=== PATIENT | female | born 1990 | race Caucasian/White ===

== ENCOUNTER 2019-05-22 11:45 | Observation (INO) | payer OTHER, SELFPAY ==
[2019-05-22] VITALS (36 sets, daily range): BP systolic 93–106; BP diastolic 50–71; PULSE 82–132; O2SAT 94–98; BMI 34.0
--- NOTE | ~2019-05-22 | US_ITS ---
EXAMINATION: US OB limited w BPP DATE: 05/22/2019 12:51 CDT INDICATION: Increased heart rate. Decelerations. TECHNIQUE: Real-time transabdominal obstetric ultrasound. FINDINGS: Ultrasound dated 05/08/2019 There is a single living fetus in vertex presentation. The placenta is anterior without placenta pre via. cardiac activity and movement is noted with a heart rate of 161 beats per minute. A FI is normal measuring 12.6 cm. Biophysical profile: breathin of 2 movement: 2 of 2 tone: 2 of 2 Amniotic flud pocket: 2 of 2 Total score: 8 of 8 IMPRESSION: 1. Single living intrauterine in vertex presentation. 2: Total biophysical profile score of 8/8. Reviewed, dictated and finalized at location A.
--- NOTE | 2019-05-22 14:04 | PC.NURSE ---
Dulce-K.[facility] CNM called read US report and informed of quick short drops in fhr that are broken up on monitor, fhr strip reactive. pt states she is SOB intermittently and states that is normal for her. Order received to discharge home.
--- NOTE | 2019-05-22 14:55 | OBADM ---
This patient, Paulette Robles, admitted to the OB room OB Post 113 for observation. Patient/family oriented to hospital policies and general routines including ID bracelet, bed and alarms, visiting hours, pain management, procedures, bathroom and other care routines, personal items, smoking policy, room service/diet, and visiting hours. Patient/Family are encouraged to report perceived risks to care and to ask questions if they do not understand what they are told or what they should do.
--- NOTE | 2019-06-04 19:12 | PM.OBTRLD ---
OB - Triage/Final Diagnosis Final Diagnosis (1) Abnormal heart rate or rhythm (FHR): Status: Acute
== END 2019-05-22 14:25 | disposition home or self-care (01) ==
PROVIDERS: Admitting Provider Obstetrics & Gynecology; Visit Provider Obstetrics & Gynecology
DX: O36.8330 Maternal care for abnormalities of the fetal heart rate or rhythm, third trimester, not applicable or unspecified (principal); Z3A.36 36 weeks gestation of pregnancy
CPT/HCPCS: 76815; 76819; G0378; G0379

== ENCOUNTER 2019-06-02 16:25 | Outpatient (RCR) | payer OTHER, SELFPAY ==
[2019-05-08 15:02] VITALS: BP 108/68; PULSE 107
[2019-05-29 17:29] VITALS: BP 102/68; PULSE 92
--- NOTE | ~2019-06-02 | US_ITS ---
EXAMINATION: US OB BPP wo non-stress DATE: 05/08/2019 14:49 INDICATION: Abnormal nonstress test. Third trimester. TECHNIQUE: Real-time pelvic ultrasound was performed. COMPARISON: None. FINDINGS: There is a single living fetus in vertex presentation. The placenta is anterior. heart rate is 155 beats per minute (bpm). Biophysical profile performed by the technologist: breathing (30 sec sustained breathing in 30 minutes): 2 out of 2 movement (3 gross body movements in 30 minutes): 2 out of 2 tone (one episode of kmxbydg-cgfwcnpmu-sfmgauc limb movement): 2 out of 2 Amniotic fluid pocket (2 cm): 2 out of 2 Total score: 8 out of 8 IMPRESSION: 1. Single living fetus in vertex presentation. 2. Biophysical profile 8 out of 8. Reviewed, dictated and finalized at location A. AP PLACER
[2019-06-02 17:35] VITALS: BP 111/72; PULSE 81
== END 2019-06-12 08:16 | disposition home or self-care (01) ==
LOC: ANHOBOP 16:25
PROVIDERS: Visit Provider Obstetrics & Gynecology
DX: O26.893 Other specified pregnancy related conditions, third trimester (principal); Z3A.34 34 weeks gestation of pregnancy; Q91.3 Trisomy 18, unspecified; Z3A.37 37 weeks gestation of pregnancy
CPT/HCPCS: 59025; 76819

== ENCOUNTER 2019-06-11 02:15 | Inpatient (IN) | payer OTHER, SELFPAY ==
[2019-06-11] VITALS (47 sets, daily range): BP systolic 72–117; BP diastolic 35–78; PULSE 59–161; RESP 16–18; TEMP 36.2–36.8; O2SAT 97–100; BMI 33.3
[2019-06-11] MEDS: LACTATED RINGERS 1,000 ML 125 ML IV CONT ×3 (06:32→08:12)
--- NOTE | 2019-06-11 06:40 | LDADM ---
This patient, Paulette Robles, was admitted to Labor/Delivery/Recovery 103 on 06/11/19 at 02:15. Plans for labor, pain management and were discussed with patient. Patient/family oriented to hospital policies and general routines including ID bracelet, bed and alarms, visiting hours, pain management, procedures, bathroom and other care routines, personal items, smoking policy, room service/diet and guest tray routines, infant security routines, and visiting hours. Patient/Family are encouraged to report perceived risks to care and to ask questions if they do not understand what they are told or what they should do. See OBIX for further documentation.
[2019-06-11 06:42] LABS: Basophils Absolute Auto 0.1 K/mm3 (0.0-0.1); Basophils Percent Auto 0.4 % (0.2-1.2); Eosinophils Absolute Auto 0.1 K/mm3 (0-0.3); Eosinophils Percent Auto 0.7 % (0-4.4); Hematocrit 35.3 % (37.0-47.0); Hemoglobin 11.4 g/dL (12.0-15.0); Immature Granulocyte Absolute 0.13 K/mm3 (0.00-0.031); Lymphocytes Absolute Auto 3.31 K/mm3 (0.9-3.2); Lymphocytes Percent Auto 24.7 % (18.3-44.2); Mean Corpuscular HGB Conc 32.3 g/dl (32-36); Mean Corpuscular Hemoglobin 30.8 pg (26-34); Mean Corpuscular Volume 95.4 fl (80-100); Mean Platelet Volume 11.6 fl (7.4-10.4); Monocytes Absolute Auto 0.9 K/mm3 (0.1-0.6); Monocytes Percent Auto 6.4 % (2.6-8.5); Neutrophils Percent Auto 66.8 % (45.5-73.1); Platelet Count Result 312 k/mm3 (150-375); Red Cell Distribution Width 13.1 % (11.5-14.5); White Blood Count 13.4 K/mm3 (4.5-10.0)
--- NOTE | 2019-06-11 08:05 | WPDOBADMIT ---
Obstetrics - Admit Note Admission Note: record reviewed. No pertinent additions to the history and/or any subsequent changes in the physical findings that are not consistent with the expected course of the were found. Additions to the history and/or subsequent changes in the physical findings follow. at 38+6 came in with c/o contractions, has changed from 3 cm to 5.5 cm and SROM with clear fluid. Cervix 5-5/50/-2. Forebag ruptured with clear fluid noted. GBS negative. Anticipate
[2019-06-11] MEDS: PHENYLEPHRINE 1,000 MCG/10 ML SYRINGE 100 MCG IV PUSH (08:10)
[2019-06-11] MEDS: OXYTOCIN 30 UNITS/NS 500 ML 30 UNITS/500 ML BAG 999 UNITS IV CONT (08:30)
--- NOTE | 2019-06-11 10:14 | PM.OBPRVD ---
OB - Delivery Note Procedure Delivery date: 06/11/19 Procedure: Intrapartal events: None Induction method: none Delivery monitor: external FHT and external uterine Route of delivery: Laceration description: None Specimen: No Estimated blood loss (mL): 62 Anesthesia type: Epidural Disposition: floor [place] Baby Date of : 06/11/19 Time of : 10:02 Weeks of gestation at delivery: 38 gender: Female Weight (pounds): 5 Weight (ounces): 11 presentation: vertex position: Right Occiput Anterior Placenta delivery description: Spontaneous cord vessel description: 3 Vessels and Nuchal Cord score one minute: 9 score five minutes: 9
[2019-06-11] MEDS: OXYTOCIN 30 UNITS/NS 500 ML 30 UNITS/500 ML BAG 125 UNITS IV CONT (10:48)
[2019-06-11] MEDS: DIBUCAINE 1% OINTMENT 30 GM TUBE 1 APPLIC TOPICAL (11:24)
[2019-06-11] MEDS: WITCH HAZEL 40 PADS 1 PAD TOPICAL (11:24)
--- NOTE | 2019-06-11 14:00 | OBPPTRN ---
Patient transferred to post room # 290 via Maria Eugenia Lenz. Support person present. Oriented to unit, room, information board, rooming in, admission packet and security measures. Patient verbalizes understanding.
[2019-06-11] MEDS: IBUPROFEN 600 MG TABLET PO (18:52)
[2019-06-11] MEDS: ACETAMINOPHEN 325 MG TABLET 650 MG PO (22:11)
[2019-06-12] MEDS: IBUPROFEN 600 MG TABLET PO ×2 (04:44→11:17)
[2019-06-12 05:03] LABS: Hemoglobin 10.4 g/dL (12.0-15.0)
[2019-06-12 07:19] VITALS: BP 102/68; PULSE 78; RESP 18; TEMP 36.6; O2SAT 99
[2019-06-12] MEDS: MULTIVIT/MIN/PREN/FOL AC/IRON TABLET 1 TAB PO (07:22)
[2019-06-12] MEDS: LANOLIN (LANSINOH) 7.5 GM CREAM 1 APPLIC TOPICAL (07:22)
[2019-06-12] MEDS: BENZOCAINE 20% AER SPR (*SP) 56 GM CAN 1 SPRAY TOPICAL (07:22)
[2019-06-12] MEDS: WITCH HAZEL 40 PADS 1 PAD TOPICAL (07:22)
[2019-06-12] MEDS: ACETAMINOPHEN 325 MG TABLET 650 MG PO (07:22)
[2019-06-12] MEDS: DOCUSATE SODIUM 100 MG CAPSULE PO (07:22)
--- NOTE | 2019-06-12 07:49 | PM.OBPNVD ---
OB - PN: Subj Subjective Date/time seen: 06/12/19 07:49 Patient comments: no complaints, pain well controlled, incisional pain, tolerating diet and flatus present OB - PN: Obj Data Labs CBC & Chem 7: 06/12/19 04:37 Labs: Laboratory Results - last 24 hr 06/11/19 06/12/19 06:29 04:37 Hgb 10.4 L Hct 32.0 L Blood Type O Positive Antibody Screen Negative OB - PN A/P Plan day: 1 Plan: routine care Comments: No problems, routine care, to discharge today Time Spent With Patient Time: Total time spent is greater than 50% in coordination of care (as documented) at patient's floor/unit and/or counseling patient: Exam Const: General: comfortable, no acute distress and alert Resp: Effort & Inspection: normal respiratory effort Auscultation: no crackles, no rales and no rhonchi Cardio: Rate: regular rate Heart sounds: no click, no murmurs and no rubs GI: Inspection: non-distended GI Palp: No Tenderness to palpation present (GI) Auscultation: normal bowel sounds Other: Incision - CDI Extrem: General: normal to inspection, no pedal edema and no calf tenderness
--- NOTE | 2019-06-12 07:50 | PM.OBDSVD ---
OB - DS: Summary OB Procedures : None OB Procedures Intrapartum: Spontaneous Vag Delivery OB Procedures: : None Peripartum Data Delivery Method: Natural Vaginal complications: none Status at Discharge Functional status at discharge: independent ambulation Time Spent with Patient Time attestation: Total time spent providing and/or coordinating discharge services: DS: Data Data Completed and Pending Labs on day of discharge: Labs from last 24 hours 06/12/19 06/11/19 04:37 06:29 Hgb 10.4 L Hct 32.0 L Blood Type O Positive Antibody Screen Negative Discharge Plan Discharge Discharging Clinician: Sita Botello Patient Disposition: Home, Self-Care Activity: pelvic rest Diet: regular Patient Instructions: Antibiotic Form Stand Alone Forms: General Discharge Information Follow-up/Referrals: Sita Botello MD [Physician] - Date of admission: 06/11/19 02:15 Primary Care Provider: UNKNOWN,DOCTOR Admitting Provider: Maria Eugenia Taylor Attending physician on admission: Maria Eugenia Taylor
[2019-06-12 08:00] VITALS: RESP 18; O2SAT 99
--- NOTE | 2019-06-12 09:15 | PC.NURSE ---
Patient viewed the discharge video Mother & Baby Care, The First Two Weeks . Patient was given the opportunity and encouraged to ask questions. Patient verbalized understanding of information shared and has been given the mother/baby guide for home reference.
--- NOTE | 2019-06-12 10:05 | WPDANLDPN2 ---
Anes-Prog Note L&D Date/Time: 06/12/19 10:05 Neuro status: Neuro function grossly intact. Vital Signs: Last Vital Signs Temp 97.9 F 06/12/19 07:19 Pulse 78 06/12/19 07:19 Resp 18 06/12/19 08:00 BP 102/68 06/12/19 07:19 Pulse Ox 99 06/12/19 08:00 Patient feedback: Patient satisfied with anesthetic care.
[2019-06-12 10:31] LABS: Rapid Plasma Reagin Non-Reactive (NonReactive)
--- NOTE | 2019-06-12 12:57 | PC.NURSE ---
Self care and infant care discharge instructions given including follow up visit date and time. Mother verbalized understanding. No questions or concerns voiced. at side. Very pleasant and cooperative.
[2019-06-13 11:50] VITALS: BP 110/75; PULSE 75; RESP 20; TEMP 37.1; O2SAT 98
== END 2019-06-12 14:35 | disposition home or self-care (01) | DRG 807 ==
LOC: ANHLDR 06:20 → ANHOB2 06-12 07:51 → ANHLDR 06-14 06:56 → ANHOB2 06-14 06:56
PROVIDERS: Admitting Provider Obstetrics & Gynecology; Visit Provider Obstetrics & Gynecology
DX: O69.81X0 Labor and delivery complicated by cord around neck, without compression, not applicable or unspecified (principal); Z37.0 Single live birth; Z3A.38 38 weeks gestation of pregnancy
CPT/HCPCS: 36415; 84112; 85014; 85018; 85025; 86592; 86850; 86900; 86901; A9270; J2370; J2590; J2795; J3010; J7120

== ENCOUNTER 2020-03-23 02:30 | Outpatient (CLI) | payer MEDICAID, SELFPAY ==
[2020-03-23 19:32] LABS: SARS-CoV-2 RNA PCR Negative
== END 2020-03-23 02:31 | disposition home or self-care (01) ==
LOC: ANHCOVIDDT 02:30
PROVIDERS: PCP Internal Medicine; Visit Provider Orthopaedic Surgery
DX: Z01.812 Encounter for preprocedural laboratory examination (principal); Z20.822 Contact with and (suspected) exposure to COVID-19
CPT/HCPCS: C9803; U0003

== ENCOUNTER 2020-03-27 02:20 | Day surgery (SDC) | payer MEDICAID, SELFPAY ==
[2020-03-18 15:31] VITALS: BMI 26.2
[2020-03-27] VITALS (10 sets, daily range): BP systolic 100–122; BP diastolic 63–81; PULSE 61–86; RESP 13–20; TEMP 36.1–36.7; O2SAT 97–100
--- NOTE | 2020-03-27 07:25 | WPDHPUPDATE1 ---
History and Physical Update Update Date/Time: 03/27/20 07:25 History and Physical has been reviewed, including an updated exam of the patient. There are NO changes in the patient's condition. Risks, benefits, and alternatives have been discussed and questions answered. Patient agrees to proceed with procedure.
--- NOTE | 2020-03-27 11:30 | WPDANESEPPF ---
Anes - Initial Pre Proc Eval Procedure: Operation Date: 03/27/20 13:00 Proposed Procedures p Right Knee Arthroscopy, Proceed As Indicated - Ken Stevenson MD Date/Time: 03/27/20 11:30 Surgeon: Ken Stevenson MD Pre Op Diagnosis: right knee lateral meniscus tear Patient Data Age: 29 Gender: F Height: 4 ft 11 in Weight: 58.97 kg Allergies Allergy/AdvReac Type Severity Reaction Status Date / Time No Known Allergies Allergy Verified 03/18/20 15:28 Home Medications Medication Instructions Recorded Confirmed Type nexuynr-ckwsbsxqzzyie-smrlydrp 250 1 tablet PO Q4-6H PRN 03/11/20 03/18/20 History mg-250 mg-65 mg tablet ibuprofen 600 mg tablet 600 mg PO Q6H PRN 03/11/20 03/18/20 History naproxen 250 mg tablet 250 mg PO BID PRN 03/11/20 03/18/20 History chlorhexidine gluconate 4 % 1 applic TOPICAL ONCE #237 ml 03/12/20 03/18/20 Rx topical liquid Patient hx anesthesia problems: none Family hx anesthesia problems: none PMFSH Past Medical History Medical History Anxiety Asthma Claustrophobia History of lipoma Had Lipectomy in 2016 Family History Family History Father Hypertension Other Asthma Bone cancer Breast cancer FH: brain cancer Social History Social History Smoking packs per day: 0.5 Smoking cigarettes per day: 10.0 Years smoked: 10 Smoking pack-years: 5.00 Smoking status: Former smoker Tobacco type: cigarettes and e-cigarettes/vaping Second hand tobacco smoke exposure: No Smoking end date: 05/13/17 Additional smoking assessment comments: QUIT SMOKING CIGARETTES IN 2018, VAPS NOW Alcohol intake: current Drinks per week: 1 Alcohol use details: 'GLASS OF WINE HERE AND THERE' Substance use: former Substance use type: marijuana Last use: 2009 Living arrangements: with family Gender identity (if verbalized by the patient): Female Spiritual care concerns: No Anes - Eval Final PreProcedure Day of Procedure 03/27/20 11:30 Patient weight: normal Heart: regular rate and rhythm Lungs: clear to auscultation Airway: Mallampati scale class 1 Neurological: alert and oriented Last oral intake: >/= 8 hours ASA classification: II Emergent: no Anesthetic plan: proceed Anesthesia type and monitoring: general LMA and standard monitoring Informed Consent: The patient's anesthetic plan and its attendant risks and benefits were discussed with the patient/family/POA. Questions were solicited and answers provided to the satisfaction of the patient/family/POA.
[2020-03-27] MEDS: LACTATED RINGERS 1,000 ML 30 ML IV CONT (12:38)
[2020-03-27] MEDS: CELECOXIB 200 MG CAPSULE PO (12:43)
[2020-03-27] MEDS: ACETAMINOPHEN 500 MG TABLET 1000 MG PO (12:43)
[2020-03-27] MEDS: ceFAZolin 2 GM/D5W 50 ML 2 GM/50 ML BAG IVPB (14:14)
[2020-03-27] MEDS: BUPIVACAINE HCL 0.5% PF 30 ML VIAL INFILTRATE (14:37)
--- NOTE | 2020-03-27 15:04 | PM.PROC ---
Procedure Note - Detailed Date of procedure: 03/27/20 Pre-op diagnosis: right knee lateral meniscus tear Post-op diagnosis: same Procedure performed: RIGHT KNEE SCOPE WITH PARTIAL LATERAL MENISCECTOMY Description of procedure: PATIENT WAS TAKEN TO THE OR. THE RIGHT LEG WAS PREPPED AND DRAPED STERILE. TROCARS WERE PLACED INTO THE KNEE JOINT IN THE USUAL FASHION. CAMERA WAS INTRODUCED. THERE WAS NO CHONDROMALACIA TO THE PATELLA FEMORAL JOINT. THERE WAS NO SIGNIFICANT SYNOVITIS. THE MEDIAL COMPARTMENT SHOWED NO CHONDROMALACIA TO THE MED FEMORAL CONDYLE OR TIBIAL PLATEAU. THERE WAS NO MEDIAL MENISCUS TEAR. THE ACL WAS INTACT. THE LATERAL MENISCUS WAS TORN. THERE WAS A VERTICAL TEAR AND WAS RESECTED BY ABOUT 15%. THE LATERAL FEMORAL CONDYLE HAD MINIMAL CHONDROMALACIA. THE PATELLA TRACKED WELL WITHIN THE TROCHLEA OF THE FEMUR. INSTRUMENTS WERE REMOVED AFTER THOROUGH IRRIGATION OF THE KNEE JOINT. THE WOUNDS WERE APPROXIMATED WITH 3.0 NYLON. STERILE DRESSING WAS APPLIED. PATIENT WAS EXTUBATED. Anesthesia: GLMA Surgeon: Ken Stevenson MD Estimated blood loss (mL): 5 Complications: No immediate complications Condition: stable Disposition: PACU
[2020-03-27] MEDS: fentaNYL CITRATE INJ (*CRX) 100 MCG/2 ML VIAL 25 MCG IV PUSH ×2 (15:20→15:30)
[2020-03-27] MEDS: oxyCODONE HCL (*CRX) 5 MG TAB IR PO (16:21)
== END 2020-03-27 17:21 | disposition home or self-care (01) ==
PROVIDERS: PCP Internal Medicine; Visit Provider Orthopaedic Surgery
PROC: (CPT 29870; principal; 2020-03-27 13:00)
DX: S83.281A Other tear of lateral meniscus, current injury, right knee, initial encounter (principal); X50.0XXA Overexertion from strenuous movement or load, initial encounter; F17.290 Nicotine dependence, other tobacco product, uncomplicated
CPT/HCPCS: 29881; A9270; J0690; J1100; J2250; J2405; J2704; J3010; J7120

== ENCOUNTER 2020-04-11 10:55 | Emergency (ER) | payer MEDICAID, SELFPAY ==
--- NOTE | 2020-04-11 11:11 | ED.URI ---
HPI - URI/Sore Throat General Chief Complaint: Upper Respiratory Infection Stated Complaint: upper respiratory Source: patient Limitations: no limitations History of Present Illness HPI Narrative: Paulette Robles is a 29 year old female with PMH of anxiety, asthma, claustophobia, with symptoms of sore throat, headache, ear pain for 2-3 days. States is a started with a sore throat 2 days ago and she is got sinus drainage but since then times developed ear pain and worsening sore throat She vapes nicotine does not use marijuana Related Data Allergies Allergy/AdvReac Type Severity Reaction Status Date / Time No Known Allergies Allergy Verified 04/09/20 10:09 Review of Systems Review of Systems: Narrative: CONSTITUTIONAL: Denies fever, chills, sweats. EYES: Denies visual changes, redness, discharge. ENT: Denies rhinorrhea, has congestion, has sore throat, has L otalgia. CARDIOVASCULAR: Denies chest pain, palpitations, edema. RESPIRATORY: Denies dyspnea, wheezing, cough GASTROINTESTINAL: Denies abdominal pain, nausea, vomiting, diarrhea. GENITOURINARY: Denies dysuria, hematuria, abnormal discharge SKIN: Denies rash or itching. NEUROLOGIC: Denies numbness, or focal weakness. PSYCHIATRIC: Denies anxiety or depression. [facility] Past Medical History Medical History Anxiety Asthma Claustrophobia History of lipoma Had Lipectomy in 2016 Family History Family History Father Hypertension Other Asthma Bone cancer Breast cancer FH: brain cancer Social History Social History Smoking packs per day: 0.5 Smoking cigarettes per day: 10.0 Years smoked: 10 Smoking pack-years: 5.00 Tobacco type: cigarettes and e-cigarettes/vaping Second hand tobacco smoke exposure: No Smoking end date: 05/13/17 Additional smoking assessment comments: QUIT SMOKING CIGARETTES IN 2018, VAPS NOW Alcohol intake: current Drinks per week: 1 Substance use: former Substance use type: marijuana Last use: 2009 Gender identity (if verbalized by the patient): Female Spiritual care concerns: No Comments At time of signature, I agree with nursing past medical, surgical, social and family history. There is no relevant family history pertinent to the presenting complaint. Exam Narrative: Exam Narrative: GENERAL: This is a well-nourished, well-developed patient, in mild distress. HEAD: normocephalic, atraumatic. EYES: Sclera clear/white. Vision is grossly intact. EARS: External ears normal, auditory canals L erythema, both without drainage, TMs normal without perforation. Hearing grossly intact. NOSE: External nose normal without nasal discharge, nares with redness, no rhinorrhea. THROAT: Mucous membranes moist, posterior pharynx erythema with no exudate NECK: Neck supple, CARDIOVASCULAR: Regular rate and rhythm without murmurs, gallops, or rubs. RESPIRATORY: Clear to auscultation. Breath sounds equal bilaterally. No wheezes, rales, or rhonchi. GASTROINTESTINAL: Abdomen soft, SKIN: warm, intact with no suspicious lesions or rash, good texture and turgor. NEURO: awake, alert, and oriented to person, place and time. There were no obvious focal neurologic abnormalities. Steady gait EXTREMITIES: Normal range of motion. BACK: Nontender without deformity Course Course Emergency Course: Patient comes to [facility] with sore throat and left ear pain and sinus congestion not feeling well for the last 2 to 3 days Strep negative Covid test negative Started on prednisone, mucinex, ear drop (abx) Follow up with pcp Vital Signs Vital signs: Vital Signs Temperature 97.6 F 04/11/20 11:17 Pulse Rate 77 04/11/20 11:17 Respiratory Rate 20 04/11/20 11:17 Blood Pressure 120/72 04/11/20 11:17 Pulse Oximetry 99 04/11/20 11:17 Temperature 97.
[2020-04-11 11:17] VITALS: BP 120/72; PULSE 77; RESP 20; TEMP 36.4; O2SAT 99
== END 2020-04-11 11:59 | disposition home or self-care (01) ==
PROVIDERS: Emergency Provider Nurse Practitioner
DX: H92.02 Otalgia, left ear (principal); J02.9 Acute pharyngitis, unspecified; Z20.822 Contact with and (suspected) exposure to COVID-19; F17.200 Nicotine dependence, unspecified, uncomplicated; J45.909 Unspecified asthma, uncomplicated; F40.240 Claustrophobia
CPT/HCPCS: 87081; 87426; 87880; 99213; C9803; G0463

== ENCOUNTER 2020-09-20 11:42 | Emergency (ER) | payer OTHER, SELFPAY ==
--- NOTE | ~2020-09-20 | XR_ITS ---
EXAMINATION: XR foot LT min 3V DATE: 09/20/2020 12:20 INDICATION: Left foot pain. Fall. TECHNIQUE: 4 views of left foot were obtained. COMPARISON: None. FINDINGS: Bone alignment is normal. No fracture. Joint spaces are well maintained. IMPRESSION: 1. Normal left foot. Reviewed, dictated and finalized at location A. IMPRESSION: 1. Normal left foot.
--- NOTE | ~2020-09-20 | XR_ITS ---
EXAMINATION: XR ankle LT min 3V DATE: 09/20/2020 12:20 INDICATION: Left ankle pain. Fall. TECHNIQUE: 4 views of left ankle were obtained. COMPARISON: None. FINDINGS: Bone alignment is normal. No fracture. Joint spaces are well maintained. IMPRESSION: 1. Normal left ankle. Reviewed, dictated and finalized at location A. IMPRESSION: 1. Normal left ankle.
[2020-09-20 11:59] VITALS: BP 125/89; PULSE 90; RESP 18; TEMP 37.4; O2SAT 99
--- NOTE | 2020-09-20 12:14 | ED.LOWEXIN ---
HPI - Extremity Injury (Lower) General Chief Complaint: Extremity Injury, Lower Stated Complaint: Lt ankle Time Seen by Provider: 09/20/20 12:14 Source: patient and RN notes reviewed Mode of arrival: ambulatory Limitations: no limitations History of Present Illness HPI Narrative: 30-year-old female presents to the [facility] with complaints of lateral left ankle and medial/dorsal left foot pain since last night. Patient states that she was carrying laundry when a piece fell, bent over to pick it up and believes her ankle rolled. Denies hitting head. No loss of consciousness. Pain with walking. No bruising or swelling noted. Positive pedal pulse. Sensation intact in all 5 toes lateral and medial foot. Capillary refill under 2 seconds Related Data Home Medications Medication Instructions Recorded Confirmed No Home Medications 09/20/20 09/20/20 Allergies Allergy/AdvReac Type Severity Reaction Status Date / Time No Known Allergies Allergy Verified 08/30/20 12:22 Review of Systems Review of Systems: All systems reviewed & are unremarkable except as noted in HPI and below Constitutional: Constitutional: Reports no additional constitutional complaints, Denies chills and Denies fever(s) Eyes: Eyes: Reports no additional eye complaints ENT: Reports system reviewed and no additional complaints, except as documented Cardiovascular: Cardiovascular: Reports no additional cardiovascular complaints Respiratory: Respiratory: Reports no additional respiratory complaints Musculoskeletal: Musculoskeletal: Reports as per HPI and Reports arthralgias (Lateral left ankle, dorsal foot) Integumentary/Breasts: Skin/Breast: Reports system reviewed and no additional complaints, except as docu, Denies pruritus and Denies rash Neurologic: Reports system reviewed and no additional complaints, except as documented, Denies syncope, Denies headache(s), Denies focal weakness, Denies numbness and Denies weakness Psychiatric: Psychiatric: Reports no additional psychiatric complaints Allergic/Immunologic: Allergic/Immunologic: Reports no additional allergic/immunologic complaints [facility] Past Medical History Medical History Anxiety Asthma Claustrophobia History of lipoma Had Lipectomy in 2016 Family History Family History Father Hypertension Other Asthma Bone cancer Breast cancer FH: brain cancer Social History Social History Smoking packs per day: 0.5 Smoking cigarettes per day: 10.0 Years smoked: 10 Smoking pack-years: 5.00 Tobacco type: cigarettes and e-cigarettes/vaping Second hand tobacco smoke exposure: No Smoking end date: 05/13/17 Additional smoking assessment comments: QUIT SMOKING CIGARETTES IN 2018, VAPS NOW Alcohol intake: current Drinks per week: 1 Alcohol use details: 'GLASS OF WINE HERE AND THERE' Substance use: former Substance use type: marijuana Last use: 2009 Gender identity (if verbalized by the patient): Female Spiritual care concerns: No Comments At the time of my signature, I reviewed and agree with the nursing past medical, surgical, social, and family history. There is no relevant family history pertinent to the patient complaint. Exam Const: General: healthy appearing, no acute distress and alert Nutritional Appearance: well nourished Orientation/consciousness: patient oriented x3 Limitations: no limitations HENMT: Head: normal to inspection Eyes: Pupils: Equal, round and reactive pupils present Neck: Neck: normal visual inspection Chest: Chest palpation & inspection: normal inspection of the chest Resp: Effort & Inspection: normal respiratory effort and no use of accessory muscles Auscultation: clear to auscultation bilaterally Cardio: Rate: regular rate Rhythm: regular rhythm Back/Spine/Pelv
== END 2020-09-20 12:40 | disposition home or self-care (01) ==
PROVIDERS: Emergency Provider Nurse Practitioner
DX: S93.402A Sprain of unspecified ligament of left ankle, initial encounter (principal); X50.9XXA Other and unspecified overexertion or strenuous movements or postures, initial encounter; J45.909 Unspecified asthma, uncomplicated; F17.200 Nicotine dependence, unspecified, uncomplicated
CPT/HCPCS: 73610; 73630; 99213; G0463

== ENCOUNTER 2020-10-16 12:30 | Outpatient (RCR) | payer OTHER, SELFPAY ==
--- NOTE | 2020-08-30 12:20 | PTOPEVAL ---
INITIAL PHYSICAL THERAPY EVALUATION and PLAN OF CARE Thank you for referring Paulette Robles to [facility].? Paulette is scheduled to be seen for physical therapy? 2x/week for 4 weeks. Please review, sign, date and return this plan of care NORMA. I agree with and certify that the following plan of care is medically necessary. Referring Physician Date Admitting Provider: Attending Provider: PHYSICIAN NOT ON STAFF Referring Provider: NIC Lazar *PT Outpatient Evaluation Start: 08/30/20 11:00 Freq: Status: Active Protocol: Document 08/30/20 11:00 MIKALA (Rec: 08/30/20 12:19 MIKALA [id number]) Therapy Assessment Status Assessment Status Assessment Status Evaluation Outpatient Past Medical History Past Medical History Source of Past Medical History Recalled from Previous Visit, Confirmed with Patient/Family Neurological History Hx Migraine Yes Cardiovascular History Hx Cardiac Disorders No Significant History Respiratory History Hx Asthma Yes Hx Bronchitis Yes Gastrointestinal History Hx Gastrointestinal Disorders No Significant History Genitourinary History Hx Genitourinary Disorders No Significant History Musculoskeletal History Hx Back Injury Yes Hx Back Pain Yes: CHRONIC Hx Fractures Yes: T5 04/2018-NO SURGERY NEEDED Hx Orthopedic Surgery Yes: R knee arthroscopy Mar 2020-torn meniscus Hematological History Hx Hematological Disorders No Significant History Endocrine History Hx Endocrine Disorders No Significant History HEENT History Hx HEENT Disorders No Significant History Integumentary History Hx Skin Disorders No Significant History Reproductive History Hx Reproductive Disorders No Significant History Psychosocial History Hx Anxiety Yes Pain History History of Any Previous or Ongoing No Significant History Instance of Pain Anesthesia History Hx Anesthesia Reactions No Significant History Other History Hx Other Surgeries Yes: LIPOMA REMOVED FROM BACK 2014 Evaluation Information Problem Diagnosis L arm paresthesia, cervicalgia Onset 04/2017 Cause fall down stairs Subjective Information Fell down 6 stairs - carrying Query Text:As Reported By Patient/ 2 month old - threw herself Family backwards - head hit stairs immediately noticed back pain - fracture T5 Ever since fall had numbness down L arm - inner aspec
--- NOTE | 2020-09-10 17:25 | PTOPEVAL ---
INITIAL PHYSICAL THERAPY EVALUATION and UPDATED PLAN OF CARE Thank you for referring Paulette Robles to [facility].? Paulette is scheduled to be seen for physical therapy? 2x/week for 4 weeks. Please review, sign, date and return this plan of care NORMA. I agree with and certify that the following plan of care is medically necessary. Referring Physician Date Admitting Provider: Attending Provider: Ken Stevenson MD Referring Provider: *PT Outpatient Evaluation Start: 08/30/20 11:00 Freq: Status: Active Protocol: Document 09/09/20 13:31 MIKALA (Rec: 09/09/20 14:37 MIKALA [id number]) Therapy Assessment Status Assessment Status Assessment Status Evaluation Outpatient Past Medical History Past Medical History Source of Past Medical History Recalled from Previous Visit, Confirmed with Patient/Family Neurological History Hx Migraine Yes Cardiovascular History Hx Cardiac Disorders No Significant History Respiratory History Hx Asthma Yes Hx Bronchitis Yes Gastrointestinal History Hx Gastrointestinal Disorders No Significant History Genitourinary History Hx Genitourinary Disorders No Significant History Musculoskeletal History Hx Back Injury Yes Hx Back Pain Yes: CHRONIC Hx Fractures Yes: T5 04/2018-NO SURGERY NEEDED Hx Orthopedic Surgery Yes: R knee arthroscopy Mar 2020-torn meniscus Hematological History Hx Hematological Disorders No Significant History Endocrine History Hx Endocrine Disorders No Significant History HEENT History Hx HEENT Disorders No Significant History Integumentary History Hx Skin Disorders No Significant History Reproductive History Hx Reproductive Disorders No Significant History Psychosocial History Hx Anxiety Yes Pain History History of Any Previous or Ongoing No Significant History Instance of Pain Anesthesia History Hx Anesthesia Reactions No Significant History Other History Hx Other Surgeries Yes: LIPOMA REMOVED FROM BACK 2014 Evaluation Information Problem Diagnosis R Quad tendinitis Onset January 2020 Additional Evaluation Detail Surgery - arthroscopy March 2020 - lateral partial meniscectomy Subjective Information Paulette reports that she was Query Text:As Reported By Patient/ on a ladder - which began to Family fall over - she jumped - landed on uneven surfaces. Thought she was fine but with
--- NOTE | 2020-09-18 13:38 | PCPTNOTE ---
Patient called & cancelled scheduled appointment this date due to director of child welfare services issues.
--- NOTE | 2020-09-30 14:57 | PTOPEVAL ---
PHYSICAL THERAPY RE-EVALUATION and UPDATED PLAN OF CARE Thank you for referring Paulette Robles to [facility].? Paulette had made some gains in regards to her neck pain and headaches, but recent increase in symptoms has occurred. She is still having R knee pain with increase in activity - but did not fully complete PT visits for this body part. She is scheduled to be seen for physical therapy? 2x/week for 2 more weeks. She will be on vacation next week. Please review, sign, date and return this plan of care NORMA. I agree with and certify that the following plan of care is medically necessary. Referring Physician Date Admitting Provider: Attending Provider: Ken Stevenson MD - R Quad tendinitis Referring Provider: NIC Lazar - Orin arm paraesthesia, cervicalgia *PT Outpatient Evaluation Start: 08/30/20 11:00 Freq: Status: Active Protocol: Document 09/30/20 13:40 MIKALA (Rec: 09/30/20 14:54 MIKALA [id number]) Therapy Assessment Status Assessment Status Assessment Status Re-evaluation Evaluation Information Problem Diagnosis L arm parasthesia, cervicalgia , R Quad tendinitis Subjective Information Paulette reports that her Query Text:As Reported By Patient/ headaches have returned with Family increase frequency within the last 4-5 days - back to taking Excedrin for her headaches. She is back to waking up with her headaches. For awhile the headaches had decreased in intensity and frequency. Neck discomfort also had decreased but the intensity has returned. L arm numbness will still wake her up at night - finds herself prone when waking up. L knee - stairs still difficult-pain and weakness and still has difficulty with picking up children - more discomfort than weakness. Not doing boxing right now - just doing weights and working out. Pain Assessment Timing of Pain Assessment Timing of Pain Assessment Assessment Pain Scale Pain Scale Used Numeric (1 - 10) Self Report Pain Assessment Right Knee(s) Reported Pain Level 1 Lowest Pain Intensity 1 Greatest Pain Intensity 6 Head Reported Pain Level 3 Lowest Pain Intensity 0 Greatest Pain Intensity 9 Posterior Neck Reported Pain Level 2 Other Pain Description
--- NOTE | 2020-10-14 12:53 | PCPTNOTE ---
Patient did not show up for scheduled appointment this date. Phone call made, message left about next visit.
--- NOTE | 2020-10-21 12:57 | PCPTNOTE ---
Patient did not show up for scheduled appointment this date. Phone call made to remind her of next visit - which is re-evaluation.
--- NOTE | 2020-10-23 12:44 | PCPTNOTE ---
Patient did not show up for scheduled appointment this date. This was her re-evaluation appointment. Last time tried to call - no answer and no voice mail set up. Will d/c pt from PT. This was her 3rd n/s in 2 wks.
--- NOTE | 2020-10-23 12:45 | PCPTNOTE ---
Admitting Provider: NIC Lazar - cervicalgia, L arm paresthesia Attending Provider: Ken Stevenson MD - R Quad tendinitis Patient:Paulette Robles Date of :1990 Paulette has not returned for any further treatments since 10/16/2020, therefore she will be discharged at this time. Patient?s initial visit was on 08/30/2020 10:30 and she had a total of 9 visits. She had a re-evaluation 09/29/20 - then she went on vacation. Following vacation she had 4 visits set up - she had 3 no show appointments including today's re-evaluation. Unsure how compliant she was with HEP as well as correct positioning for head/neck region as well as knees with activities - especially her boxing related work outs. The goals have been partially met. Her status is as of 09/29/20 re-evaluation. Thank you for referring Paulette to [facility]. Please review, sign, date and return this discharge summary NORMA. I have been updated about Paulette's current status and I agree with discharge from the above service at this time. Referring Physician Date
== END 2020-11-21 09:22 | disposition home or self-care (01) ==
LOC: ANHHIPT 12:30
PROVIDERS: Visit Provider Orthopaedic Surgery
DX: M54.2 Cervicalgia (principal); R53.1 Weakness
CPT/HCPCS: 97110; 97140; 97161; 97162

== ENCOUNTER 2020-11-13 16:13 | Emergency (ER) | payer OTHER, SELFPAY ==
--- NOTE | ~2020-11-13 | XR_ITS ---
EXAMINATION: XR chest 2V DATE: 11/13/2020 18:28 INDICATION: Shortness of breath. COVID-19 positive. TECHNIQUE: Frontal and lateral views of the chest were obtained. COMPARISON: None. FINDINGS: There are mild airspace opacities in the lower lung zones. No pleural effusion or pneumotho rax. The heart size is normal. IMPRESSION: 1. Mild airspace opacities in the lower lung zones, consistent with COVID-19 pneumonia. Reviewed, dictated and finalized at location A. IMPRESSION: 1. Mild airspace opacities in the lower lung zones, consistent with COVID-19 pn eumonia.
[2020-11-13 16:38] VITALS: BP 144/105; PULSE 88; RESP 18; TEMP 37.1; O2SAT 99
--- NOTE | 2020-11-13 16:43 | ECG_ITS ---
Measurements Intervals [place] Rate: 78 P: 55 HI: 134 QRS: 62 QRSD: 78 T: 39 QT: 349 QTc: 398 Interpretive Statements SINUS RHYTHM NORMAL ECG Electronically Signed On 11-13-2020 19:05:33 CDT by Vasyl Baker D.O.
[2020-11-13 17:58] LABS: Basophils Percent Auto 0.4 % (0.2-1.2); Eosinophils Percent Auto 0.2 % (0-4.4); Hematocrit 42.6 % (37.0-47.0); Hemoglobin 14.5 g/dL (12.0-15.0); Immature Granulocyte Absolute 0.02 K/mm3 (0.00-0.031); Immature Granulocyte Percent A 0.4 % (0-0.5); Lymphocytes Absolute Auto 1.96 K/mm3 (0.9-3.2); Lymphocytes Percent Auto 40.6 % (18.3-44.2); Mean Corpuscular Hemoglobin 31.4 pg (26-34); Mean Corpuscular Volume 92.2 fl (80-100); Mean Platelet Volume 10.2 fl (7.4-10.4); Monocytes Absolute Auto 0.4 K/mm3 (0.1-0.6); Monocytes Percent Auto 7.9 % (2.6-8.5); Neutrophils Absolute Auto 2.4 K/mm3 (1.3-6.7); Neutrophils Percent Auto 50.5 % (45.5-73.1); Platelet Count Result 241 k/mm3 (150-375); Red Blood Count 4.62 M/mm3 (4.2-5.4); Red Cell Distribution Width 12.4 % (11.5-14.5); White Blood Count 4.8 K/mm3 (4.5-10.0)
[2020-11-13 18:07] LABS: Alanine Aminotransferase 11 U/L (4-35); Albumin Level 4.6 g/dL (3.5-5.1); Alkaline Phosphatase 58 U/L (38-126); Anion Gap 11 mmol/L (8-16); Aspartate Amino Transferase 19 U/L (14-36); Bilirubin,Total 0.4 mg/dL (0.2-1.3); Blood Urea Nitrogen 15 mg/dL (7-17); Carbon Dioxide 22 mmol/L (22-30); Chloride 107 mmol/L (98-107); Estimated Glomerular Filt Rate > 60; Glucose 88 mg/dL (65-110); Sodium 140 mmol/L (137-145)
[2020-11-13 18:42] VITALS: BP 132/105; PULSE 78; RESP 16; TEMP 36.8; O2SAT 99
--- NOTE | 2020-11-13 19:15 | ED.GENADULT ---
HPI - General Adult General Chief complaint: Shortness of Breath/Dyspnea Stated complaint: covid + chest discomfort Time Seen by Provider: 11/13/20 18:42 Source: patient and RN notes reviewed Mode of arrival: ambulatory Limitations: no limitations History of Present Illness HPI narrative: This is a 30 year old female who presents she developed symptoms of covid 8 days ago. She reports body aches, cough, congestion and loss of taste and smell. She has not been tested for covid though. she just assumes she has it. She came to ER today because she developed intermittent midsternal sharp chest pain yesterday. She also reports difficult time taking a breath. She is unsure of shortness of breath because she has asthma. She has not been vaccinated. Related Data Allergies Allergy/AdvReac Type Severity Reaction Status Date / Time No Known Allergies Allergy Verified 11/13/20 18:45 Review of Systems Review of Systems: All systems reviewed & are unremarkable except as noted in HPI and below PMFSH Past Medical History Medical History Anxiety Asthma Claustrophobia History of lipoma Had Lipectomy in 2016 Family History Family History Father Hypertension Other Asthma Bone cancer Breast cancer FH: brain cancer Social History Social History Smoking packs per day: 0.5 Smoking cigarettes per day: 10.0 Years smoked: 10 Smoking pack-years: 5.00 Tobacco type: cigarettes and e-cigarettes/vaping Second hand tobacco smoke exposure: No Smoking end date: 05/13/17 Additional smoking assessment comments: QUIT SMOKING CIGARETTES IN 2018, VAPS NOW Alcohol intake: current Drinks per week: 1 Alcohol use details: 'GLASS OF WINE HERE AND THERE' Substance use: former Substance use type: marijuana Last use: 2009 Gender identity (if verbalized by the patient): Female Sexual Orientation (if Verbalized by the Patient): Straight or Heterosexual Spiritual care concerns: No Exam Const: General: alert Orientation/consciousness: patient oriented x3 Eyes: EOM: EOMs intact bilaterally Chest: Chest palpation & inspection: normal inspection of the chest Resp: Effort & Inspection: normal respiratory effort and no retractions Auscultation: clear to auscultation bilaterally Cardio: Rate: regular rate Rhythm: regular rhythm Heart sounds: no murmurs GI: GI Palp: Yes Soft to palpation, No Tenderness to palpation present (GI) and No Guarding due to palpation present (GI) Auscultation: normal bowel sounds Skin: General skin exam: normal color Rashes: no rashes Neuro: General: patient oriented x3, moves all extremities and CN's II-XI intact bilaterally Psych: Mental Status: mental status grossly normal Affect: normal affect Course Reevaluation(s) Reevaluation #1: I Discussed with patient that labs are normal. She will be discharge home with antibiotics. She has albuterol inhaler. She is 99% on room air with normal vitals. She is stable for discharge home. She still may have covid but she is almost to 10days. Date: 11/13/20 Time: 20:19 Vital Signs Vital signs: Vital Signs Temperature 98.7 F 11/13/20 16:38 Pulse Rate 88 11/13/20 16:38 Respiratory Rate 18 11/13/20 16:38 Blood Pressure 144/105 H 11/13/20 16:38 Pulse Oximetry 99 11/13/20 16:38 Temperature 98.2 F 11/13/20 18:42 Pulse Rate 78 11/13/20 18:42 Respiratory Rate 16 11/13/20 18:42 Blood Pressure 132/105 H 11/13/20 18:42 Pulse Oximetry 99 11/13/20 18:42 Medical Decision Making Vital Signs Vital Signs: Vital Signs Temperature 98.7 F 11/13/20 16:38 Pulse Rate 88 11/13/20 16:38 Respiratory Rate 18 11/13/20 16:38 Blood Pressure 144/105 H 11/13/20 16:38 Pulse Oximetry 99 11/13/20 16:38 Temperature 98.2 F 11/13/20 1
--- NOTE | 2020-11-13 19:24 | PC.NURSE ---
Report received and care of pt assumed at this time.
[2020-11-13 19:51] LABS: INR 0.9; Prothrombin Time 12.3 Seconds (11.1-14.7)
[2020-11-13 19:52] LABS: Partial Thromboplastin Time 35.3 SECONDS (22.3-36.8)
[2020-11-13 19:54] LABS: D Dimer 0.29 ug/mL (<0.48)
[2020-11-13 20:07] LABS: Troponin I < 0.012 ng/mL (0.000-0.034)
[2020-11-13 20:17] LABS: EDCOVIDSCREEN Negative (Negative)
[2020-11-13] MEDS: DOXYCYCLINE HYCLATE 100 MG TABLET PO (20:44)
== END 2020-11-13 20:48 | disposition home or self-care (01) ==
PROVIDERS: Family Medicine; Emergency Provider General Practice
DX: Z20.822 Contact with and (suspected) exposure to COVID-19 (principal); J18.9 Pneumonia, unspecified organism; J45.909 Unspecified asthma, uncomplicated; F17.210 Nicotine dependence, cigarettes, uncomplicated
CPT/HCPCS: 36415; 71046; 80053; 84484; 85025; 85380; 85610; 85730; 87426; 93005; 99284; A9270; C9803

== ENCOUNTER 2020-11-18 18:04 | Emergency (ER) | payer OTHER, SELFPAY ==
[2020-11-18] VITALS (14 sets, daily range): BP systolic 100–120; BP diastolic 68–85; PULSE 61–86; RESP 14–26; TEMP 36.8; O2SAT 98–100
--- NOTE | ~2020-11-18 | XR_ITS ---
EXAMINATION: XR chest 1V portable DATE: 11/18/2020 18:48 INDICATION: Chest pain. TECHNIQUE: A single frontal view of the chest was obtained. COMPARISON: Chest 2 views 11/13/2020 FINDINGS: There are mild airspace opacities in the lower lung zones. No pleural effusion or pneumotho rax. The heart size is normal. IMPRESSION: 1. Stable mild airspace opacities in the lower lung zones, consistent with pneumonia. Reviewed, dictated and finalized at location A. IMPRESSION: 1. Stable mild airspace opacities in the lower lung zones, consistent with pneu monia.
--- NOTE | 2020-11-18 18:12 | ECG_ITS ---
Measurements Intervals [place] Rate: 76 P: 52 SD: 132 QRS: 57 QRSD: 81 T: 42 QT: 353 QTc: 399 Interpretive Statements SINUS RHYTHM WITH SINUS ARRHYTHMIA BASELINE ARTIFACT- I, III, AVR, AVL, AVF NORMAL ECG Electronically Signed On 11-19-2020 5:18:29 CDT by Vasyl Baker D.O.
[2020-11-18 18:30] LABS: Basophils Percent Auto 0.4 % (0.2-1.2); Eosinophils Absolute Auto 0.1 K/mm3 (0-0.3); Eosinophils Percent Auto 1.3 % (0-4.4); Hematocrit 41.6 % (37.0-47.0); Hemoglobin 13.8 g/dL (12.0-15.0); Immature Granulocyte Absolute 0.01 K/mm3 (0.00-0.031); Immature Granulocyte Percent A 0.1 % (0-0.5); Lymphocytes Absolute Auto 2.55 K/mm3 (0.9-3.2); Lymphocytes Percent Auto 36.3 % (18.3-44.2); Mean Corpuscular HGB Conc 33.2 g/dl (32-36); Mean Corpuscular Hemoglobin 30.4 pg (26-34); Mean Corpuscular Volume 91.6 fl (80-100); Mean Platelet Volume 10.2 fl (7.4-10.4); Monocytes Absolute Auto 0.4 K/mm3 (0.1-0.6); Monocytes Percent Auto 5.5 % (2.6-8.5); Neutrophils Percent Auto 56.4 % (45.5-73.1); Platelet Count Result 348 k/mm3 (150-375); Red Blood Count 4.54 M/mm3 (4.2-5.4); Red Cell Distribution Width 12.1 % (11.5-14.5)
[2020-11-18] MEDS: ASPIRIN 81 MG CHEWABLE TABLET 324 MG PO (18:34)
[2020-11-18 18:42] LABS: Prothrombin Time 12.6 Seconds (11.1-14.7)
[2020-11-18 18:43] LABS: Partial Thromboplastin Time 32.9 SECONDS (22.3-36.8)
--- NOTE | 2020-11-18 19:14 | PC.NURSE ---
Assumed care of pt at this time. Report from Marielle NORTON.
--- NOTE | 2020-11-18 19:15 | PC.NURSE ---
Pt refused Covid swab. Dr and Charge updated.
--- NOTE | 2020-11-18 19:21 | PC.NURSE ---
Called lab and spoke to Alexandrea to add on Hepatic, LDH, C-Reactive protein, D-Dimer 192
[2020-11-18 19:30] LABS: Anion Gap 8 mmol/L (8-16); Blood Urea Nitrogen 21 mg/dL (7-17); Calcium 9.2 mg/dL (8.4-10.2); Carbon Dioxide 23 mmol/L (22-30); Chloride 107 mmol/L (98-107); Estimated Glomerular Filt Rate > 60; Glucose 116 mg/dL (65-110); Potassium 3.8 mmol/L (3.4-5.0); Sodium 138 mmol/L (137-145)
[2020-11-18 19:35] LABS: D Dimer 0.45 ug/mL (<0.48)
[2020-11-18 19:42] LABS: Troponin I < 0.012 ng/mL (0.000-0.034)
[2020-11-18 19:48] LABS: Alanine Aminotransferase 11 U/L (4-35); Albumin Level 3.9 g/dL (3.5-5.1); Alkaline Phosphatase 52 U/L (38-126); Aspartate Amino Transferase 21 U/L (14-36); Bilirubin,Total 0.3 mg/dL (0.2-1.3); CRP < 0.5 mg/dL (<1.0); Lactate Dehydrogenase 333 U/L (313-618)
[2020-11-18 21:37] LABS: Troponin I < 0.012 ng/mL (0.000-0.034)
--- NOTE | 2020-11-18 21:47 | ED.CHESTPAIN ---
HPI - Chest Pain General Chief Complaint: Chest Pain Stated Complaint: SHARP CP FOR PAST FEW DAYS. Time Seen by Provider: 11/18/20 19:02 Source: RN notes reviewed History of Present Illness HPI narrative: Patient presents to emergency department from home for chest pain. Patient states that she was cooking dinner this evening with the smell of the dinner when she suddenly had sharp pain in the lower midsternal chest pain lasted approximate 15 to 30 seconds and resolved patient states that she has been having intermittent episodes of sharp stabbing lower midsternal chest pain last 15 to 30 seconds over the past week and a half the patient notes that she initially had symptoms of Covid on 11/06/2019 when she states she lost taste and smell at that time and had a cough she was seen here on 11/13/2020 as she is having some chest pain shortness of breath chest x-ray showed questionable pneumonia Covid swab have been negative but had been felt the patient likely had Covid she was started on antibiotics of doxycycline which he has been taking albuterol inhaler at that time patient denies any chest pain or shortness of breath at this time Related Data Allergies Allergy/AdvReac Type Severity Reaction Status Date / Time No Known Allergies Allergy Verified 11/18/20 18:17 Review of Systems Review of Systems: Gen.: Denies fevers or chills ENT: Denies congestion Respiratory: Denies shortness of breath or cough CV: See HPI GI: Denies abdominal pain nausea, emesis or diarrhea denies burning, urgency, frequency or hematuria Musculoskeletal: Denies back pain or muscle pain Neuro: Denies numbness, tingling, weakness or focal weakness Skin: Denies rash Except as documented, all other systems reviewed and negative PENDING SALE TO [facility] Past Medical History Medical History Anxiety Asthma Claustrophobia History of lipoma Had Lipectomy in 2016 Family History Family History Father Hypertension Other Asthma Bone cancer Breast cancer FH: brain cancer Social History Social History Smoking packs per day: 0.5 Smoking cigarettes per day: 10.0 Years smoked: 10 Smoking pack-years: 5.00 Tobacco type: cigarettes and e-cigarettes/vaping Second hand tobacco smoke exposure: No Smoking end date: 05/13/17 Additional smoking assessment comments: QUIT SMOKING CIGARETTES IN 2018, VAPS NOW Alcohol intake: current Drinks per week: 1 Alcohol use details: 'GLASS OF WINE HERE AND THERE' Substance use: former Substance use type: marijuana Last use: 2009 Gender identity (if verbalized by the patient): Female Sexual Orientation (if Verbalized by the Patient): Straight or Heterosexual Spiritual care concerns: No Exam Narrative: APPEARANCE: No acute distress, nontoxic, resting in bed EYES: EOMI HEENT: Normocephalic, atraumatic, OMM RESPIRATORY: No respiratory distress Clear to auscultation bilaterally with no rhonchi wheezing or rales. CARDIOVASCULAR: Regular rate and rhythm without murmurs rubs or gallops. Chest: Tender to palpation over the right lower anterior chest wall just to the right of sternum and regions of ribs 8 through 10 ABDOMINAL: Soft, nontender, nondistended, no rebound or guarding MUSCULOSKELETAl: Moves all extremities. No clubbing, cyanosis or edema. NEURO: Awake and alert. Following commands, speech normal, no focal deficits SKIN:: Warm, dry. No rashes lesions or abrasions PSYCHIATRIC: Normal affect/mood, Course Course Emergency Course: Discussed with patient results of workup and diagnosis. Discussed need for follow-up with primary care, proper use of medication, and reasons to return to the emergency department. Patient understands and agrees to current treatment plan Vital Signs Vital signs: Vital Signs Temperature 98.2 F 11/18/20 18:12 Pulse Rate 7
[2020-11-18] MEDS: predniSONE 20 MG TABLET 60 MG PO (21:54)
== END 2020-11-18 22:05 | disposition home or self-care (01) ==
PROVIDERS: Emergency Medicine; Emergency Provider Emergency Medicine; PCP Internal Medicine
DX: R09.1 Pleurisy (principal); Z87.891 Personal history of nicotine dependence; F41.9 Anxiety disorder, unspecified; J45.909 Unspecified asthma, uncomplicated
CPT/HCPCS: 36415; 71045; 80048; 80076; 83615; 84484; 85025; 85380; 85610; 85730; 86140; 93005; 99284; A9270; J7512

== ENCOUNTER 2021-04-23 10:58 | Outpatient (CLI) | payer OTHER, SELFPAY ==
--- NOTE | ~2021-04-23 | US_ITS ---
EXAMINATION: US breast RT limited HISTORY: Pain in the upper inner quadrant and axillary region of the right breast TECHNIQUE: Limited right breast ultrasound is performed. FINDINGS: There is no evidence of focal abnormal cystic or solid mass in the vicinity of the patient' s right breast and axillary pain IMPRESSION: No specific sonographic correlate is identified for the patient's reported right breast and axillary pain. Further evaluation at this time should be based on clinical assessment. Continued follow-up phy sical examination is recommended. BI-RADS Category 1: Negative Reviewed, dictated and finalized at location A. OGICAL PLANT OPERATOR IMPRESSION: No specific sonographic correlate is identified for the patient's reported righ t breast and axillary pain. Further evaluation at this time should be based on clinical assessment. Continued follow-up physical examination is recommended. BI-RADS Category 1: Negative
== END 2021-04-23 10:59 | disposition home or self-care (01) ==
PROVIDERS: PCP Family Medicine; Visit Provider Advanced Practice Midwife
DX: N64.4 Mastodynia (principal)
CPT/HCPCS: 76642

== ENCOUNTER 2021-04-29 14:54 | Outpatient (CLI) | payer OTHER, SELFPAY ==
--- NOTE | ~2021-04-29 | MR_ITS ---
EXAMINATION: MR brain/brain stem wo con DATE: 04/29/2021 15:38 INDICATION: Headache, unspecified. TECHNIQUE: Magnetic resonance imaging (MRI) of the brain and brainstem was performed without intraven ous contrast. Sequences included sagittal and axial T1-weighted FSE, axial diffusion-weighted FS EPI, axial T2*-weighted GRE, axial T2-weighted FLAIR Propeller, and axial T2-weighted Propeller. Apparent diffusion coefficient (ADC) maps were created. COMPARISON: None. FINDINGS: There is no intracranial hemorrhage, acute infarction, or abnormal intracranial mass lesion . The ventricles are normal in size. There is a mucous retention cyst in left maxillary sinus. The or bits are normal. The mastoid air cells are normal. IMPRESSION: 1. Normal brain. Reviewed, dictated and finalized at location A. GRATED MARKETING MANAGER IMPRESSION: 1. Normal brain.
== END 2021-04-29 14:55 | disposition home or self-care (01) ==
LOC: ANHIMG 14:58
PROVIDERS: PCP Family Medicine; Visit Provider Family Medicine
DX: R51.9 Headache, unspecified (principal)
CPT/HCPCS: 70551

== ENCOUNTER 2021-10-01 17:30 | Emergency (ER) | payer OTHER, SELFPAY ==
[2021-10-01 17:41] VITALS: BP 118/81; PULSE 88; RESP 16; TEMP 37.3; O2SAT 97
--- NOTE | 2021-10-01 17:44 | ED.EAR ---
HPI - Ear Problem General Chief complaint: Ear Stated complaint: R EAR PAIN/PRESSURE Time Seen by Provider: 10/01/21 17:42 Source: patient Mode of arrival: ambulatory Limitations: no limitations History of Present Illness HPI Narrative: Ms. Robles is a 31-year-old female patient presenting to the clinic today with complaints of right ear pain/pressure x2 to 3 days. She reports that she just got over parainfluenza and has developed ear pain and popping. States that she has had a low-grade temp but that was with the parainfluenza. She just finished a prescription of azithromycin. Related Data Home Medications Medication Instructions Recorded Confirmed etonogestrel 68 mg subdermal 1 implant subdermal ONCE 04/14/21 07/01/21 implant (Nexplanon) Allergies Allergy/AdvReac Type Severity Reaction Status Date / Time No Known Allergies Allergy Verified 07/01/21 10:47 Review of Systems Review of Systems: Pertinent positives per HPI. Patient denies any fever, chills, rash, headache, visual changes, dizziness, sore throat, shortness of breath, chest pain, palpitations, nausea, vomiting, diarrhea, constipation, abdominal pain, or any urinary issues. [facility] Past Medical History Medical History Anxiety Asthma Claustrophobia History of lipoma Had Lipectomy in 2016 Surgical History Surgical History H/O knee surgery Family History Family History Father Hypertension Heart disease Grandparent FH: brain cancer Other Asthma Bone cancer Breast cancer Social History Social History Smoking packs per day: 0.5 Smoking cigarettes per day: 10.0 Years smoked: 10 Smoking pack-years: 5.00 Smoking status: Current some day smoker Tobacco type: cigarettes and e-cigarettes/vaping Second hand tobacco smoke exposure: No Smoking end date: 05/13/17 Additional smoking assessment comments: QUIT SMOKING CIGARETTES IN 2018, VAPS NOW Alcohol intake: current Drinks per week: 1 Alcohol use details: 'GLASS OF WINE HERE AND THERE' Substance use: former Substance use type: marijuana Last use: 2009 Additional occupation/education comments: homemaker Gender identity (if verbalized by the patient): Female Sexual Orientation (if Verbalized by the Patient): Straight or Heterosexual Spiritual care concerns: No Agree to blood products: Yes Comments At the time of my signature, I reviewed and agree with the nursing past medical, surgical, social, and family history. There is no relevant family history pertinent to the patient complaint. Exam Narrative: General: Well-developed, well nourished, in no apparent distress Head: Normocephalic, atraumatic Eyes: Pupils equally round and reactive to light bilaterally, EOM intact, sclera and conjunctive clear, no discharge, lids normal Ears: Left TMs intact and clear, right TM intact, mild bulging, fluid noted behind TM, ear canals clear, no drainage, grossly hearing normal. Nose: Nares patent, no discharge, no inflammation, no sinus tenderness. Mouth: Oropharynx without lesions or masses, good dentition, MMM. Neck: Supple, trachea midline, no enlargement of anterior or posterior cervical nodes, no thyroid masses or goiter palpable. Cardio: Regular rate and rhythm, s1 and s2 normal, no murmur appreciated. Resp: Clear to auscultation bilaterally anteriorly and posteriorly, no rhonchi, rales, wheezing or rubs Course Course Emergency Course: Portions of this record may have been created with voice recognition software. Level of Care: Express Care Visit Vital Signs Vital signs: Vital Signs Temperature 37.3 C 10/01/21 17:41 Pulse Rate 88 10/01/21 17:41 Respiratory Rate 16 10/01/21 17:41 Bloo
== END 2021-10-01 17:52 | disposition home or self-care (01) ==
PROVIDERS: Emergency Provider Nurse Practitioner Family; PCP Family Medicine
DX: H65.01 Acute serous otitis media, right ear (principal); H69.91 Unspecified Eustachian tube disorder, right ear; F17.290 Nicotine dependence, other tobacco product, uncomplicated; J45.909 Unspecified asthma, uncomplicated; F40.240 Claustrophobia
CPT/HCPCS: 99213; G0463